=== PATIENT | male | born 1955 | race Caucasian/White ===

== ENCOUNTER → 2018-01-04 12:21 | Outpatient (CLI) | payer MEDICAID, SELFPAY ==
--- NOTE | 2018-01-04 09:00 | LES_PTH ---
PATIENT: ALCIDES BIRD LOC: [facility] U#:[id number] AGE/SX: 69/M ROOM: RE01/04/[address]: Dr. Figueroa Doshi DO : 1955 BED: DIS: SPEC #: [id number] RECD: 01/04/18 12:15 STATUS: SAMANTHATramaine MANUEL #: [id number] SONDRA: 01/04/18 09:[address]: Figueroa Doshi DEPT: SURGICAL PATHOLOGY RECD BY: Sohail Jacobo Tissues: Skin, NOS Procedures: Surgery Specimen Level IV HEADER OPERATION: Punch biopsy abnormal nevus PRE-OP DIAGNOSIS: Rule out melanoma TISSUE SUBMITTED: 5 mm punch atypical nevus MICROSCOPIC DIAGNOSIS Atypical nevus, punch biopsy: Consistent with pigmented seborrheic keratosis. Negative for melanocytic lesion. SJ:lizy 01/05/18 MICROSCOPIC DESCRIPTION Slides are reviewed. GROSS DESCRIPTION Received in fixative is one container labeled with the patient's name and designated punch biopsy. The specimen consists of a round piece of harp-brown skin measuring 0.5 cm in diameter and up to 0.3 cm in depth. The entire specimen is submitted in one cassette. / SJ:rg 01/04/18 TC:1 CPT: 24200
== END ==
PROVIDERS: Family Provider Family Medicine; PCP Family Medicine; Visit Provider Family Medicine
DX: Z85.820 Personal history of malignant melanoma of skin (principal)
CPT/HCPCS: 88305

== ENCOUNTER → 2018-06-30 08:17 | Outpatient (CLI) | payer MEDICAID, SELFPAY ==
[2018-06-30 12:50] LABS: Absolute Neutrophil Count 3.9 X10^3/uL (2.0-7.7); Basophil# 0.07 X10^3/uL; Eosinophil# 0.44 X10^3/uL; Eosinophils% 6.1 % (0-5); Hematocrit 44.3 % (40-54); Hemoglobin 14.5 g/dl (13.0-16.5); Lymphocyte % 31.6 % (19-41); Mean Corp Hgb Conc 32.7 g/gl (32-36); Mean Corpuscular Hgb 29.7 pg (27.0-32.0); Mean Corpuscular Volume 90.8 fL (80-94); Monocyte# 0.52 X10^3/uL; Monocyte% 7.2 % (0-10); Neutrophil # 3.93 X10^3/uL (2.7-7.7); Platelet Count 214 K/mm3 (150-450); RBC Distribution Width CV 14.8 % (11.6-14.6); RBC Distribution Width SD 48.7 fl (35.1-43.9); Red Blood Count 4.88 M/mm3 (4.6-6.2); White Blood Count 7.3 K/mm3 (4.4-11.0)
[2018-06-30 12:54] LABS: Microalbumin,Random Urine < 5.0 mg/L (NO RANGE EST.)
[2018-06-30 13:03] LABS: POSITIVE COUNT NO; POSITIVE DIFFERENTIAL NO; POSITIVE MORPHOLOGY NO
[2018-06-30 13:56] LABS: ALB/GLOB Ratio 1.1 RATIO (0.9-2.4); AST(SGOT) 11 U/L (15-37); Alanine Aminotransfer ALT/SGPT 20 U/L (16-61); Albumin, Serum 3.4 g/dL (3.2-5.0); Alkaline Phosphatase 81 U/L (45-117); Anion Gap 8 (5-15); BUN 7 mg/dL (7-18); BUN/Creat Ratio 8.7 RATIO (10-20); Calcium,Total 8.4 mg/dL (8.5-10.1); Chloride 109 mmol/L (98-107); Cholesterol 161 mg/dL (200); Creatinine, Serum 0.81 mg/dL (0.70-1.30); EST Glomerular Filtration Rate 103 mL/min (>60); Est Glom Filt Rate - Afr Amer 125 mL/min (>60); Glucose 157 mg/dL (74-106); High Density Lipoprotein 38 mg/dL; PSA,Total - Annual Screen 2.56 ng/mL (0.00-4.00); Protein, Total 6.4 g/dL (6.4-8.2); Sodium Level 143 mmol/L (136-145); Thyroid Stim Hormone (TSH) 1.15 uIU/mL (0.358-3.74); Triglycerides 66 mg/dL; Very Low Density Lipoprotein 13 mg/dL (5-40)
--- OUTSIDE RECORDS SUMMARY | 2018-08-15 19:56 | XMS RPT_ITS ---
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 / Repository E11.9(ICD-10) 06/30/2018 Unknown I10 - Essential Figueroa Doshi (primary) Community hypertension / Hospital I10(ICD-10) Repository 06/30/2018 Unknown Z12.5 - Encounter Figueroa Doshi for screening for Community malignant neoplasm Hospital of prostate / Repository Z12.5(ICD-10) 06/30/2018 Unknown R63.4 - Abnormal Figueroa Doshi weight loss / Community R63.4(ICD-10) Hospital Repository PROCEDURES PROCEDURES No Procedure Records FoundRESULTS RESULTS MICROALB:CREAT Collected: 06/30/2018 Status: F Source: [facility] RATIO,RANDOM UR 8:18 AM [facility] REPOSITORY TYPE CODE TESTS RESULT OUT OF RANGE REFERENCE UNITS LAB L501.1200 NO RANGE EST. mg/dL 99.80 Normal UR CREAT LAB L502.0500 NO RANGE EST. mg/L < 5.0 Normal MICROALBUMI N,UR LAB L502.0600 <30 mg/g CRE mg/g CRE Test Normal not performed MALB:CREAT Performed By: #### L502.0250 #### [facility] [address] [place], [address] CBC W/DIFF, AUTOMATED Collected: 06/30/2018 Status: F Source: [place] 8:18 AM [facility] REPOSITORY TYPE CODE TESTS RESULT OUT OF RANGE REFERENCE UNITS LAB L100.1000 4.4-11.0 K/mm3 Normal WBC 7.3 LAB L100.1200 4.6-6.2 M/mm3 Normal RBC 4.88 LAB L100.1300 13.0-16.5 g/dl Normal HGB 14.5 LAB L100.1400 40-54 % Normal HCT 44.3 LAB L100.1500 80-94 fL Normal MCV 90.8 LAB L100.1600 27.0-32.0 pg Normal MCH 29.7 LAB L100.1700 32-36 g/gl Normal MCHC 32.7 LAB L100.1810 11.6-14.6 % High RDW CV 14.8 LAB L100.1820 35.1-43.9 fl High RDW SD 48.7 LAB L100.1900 150-450 K/mm3 Normal PLT 214 LAB L100.2000 6.2-12.0 fl Normal MPV 12.0 LAB L100.2100 47-70 % Normal NEUT% 54.0 LAB L100.2200 19-41 % Normal LY% 31.6 LAB L100.2300 0-10 % Normal MONO% 7.2 LAB L100.2400 0-5 % High EO% 6.1 LAB L100.2500 0-1 % Normal BASO% 1.0 LAB L100.2550 0.0-0.9 % Normal IM GRAN % 0.100 Result Comment: IG% - Immature Granulocytes (promyelocytes, myelocytes and metamyelocytes) > 1% indicates that a LEFT SHIFT is Present. LAB L100.2620 2.0-7.7 X10 3/uL Normal Absolute Neut 3.9 LAB L100.2720 0.83-4.51 X10 3/ul Normal Absolute Lymph 2.30 Performed By: #### L100.0100 #### [facility] [address] [place], [address] COMPREHENSIVE METABOLIC Collected: 06/30/2018 Status: F Source: [facility] 8:18 AM [facility] REPOSITORY TYPE CODE TESTS RESULT OUT OF RANGE REFERENCE UNITS LAB L501.0100 74-106 mg/dL High GLU 157 Result Comment: Fasting Glucose result greater than or equal to 126 mg/dL suggests DIABETES MELLITUS per A.D.A. criteria. Please note revised GLUCOSE reference range effective 2017. LAB L501.1000 7-18 mg/dL Normal BUN 7 LAB L501.1100 0.70-1.30 mg/dL Normal CREAT,SERUM 0.81 Result Comment: The validity of the calculated GFR AND GFRAA in patients over 70 years has not been determined. Clinical correlation is essential. LAB L501.1110 >60 mL/min Normal EST GFR 103 Result Comment: Non- GFR Calc LAB L501.1115 >60 mL/min Normal EST GFR - AA 125 Result Comment: GFR Calc LAB L501.1300 10-20 RATIO Low BUN/CRE 8.7 LAB L501.1500 6.4-8.2 g/dL Normal T PROT 6.4 LAB L501.1800 3.2-5.0 g/dL Normal ALB 3.4 LAB L501.1950 2.2-4.2 g/dL Normal GLOB 3.0 LAB L501.2000 0.9-2.4 RATIO Normal A/G 1.1 LAB L501.2200 8.5-10.1 mg/dL Low CA 8.4 LAB L501.4100 15-37 U/L Low AST 11 LAB L501.4305 45-117 U/L Normal ALK P 81 LAB L501.4405 16-61 U/L Normal ALT 20 LAB L501.4600 0.20-1.00 mg/dL Normal T BILI 0.40 LAB L501.5300 136-145 mmol/L Normal NA 143 LAB L501.5600 3.5-5.1 mmol/L Normal K 4.0 LAB L501.5900 98-107 mmol/L High CL 109 LAB L501.6100 21.0-32.0 mmol/L Normal CO2 26.0 LAB L501.6200 5-15 Normal GAP 8 Performed By: #### L500.4050, L500.4100, L501.9520, L501.9910 #### [facility] [address] [place], [place], [id number] LIPID PROFILE Collected: 06/30/2018 Status: F Source: [place] 8:18 AM [facility] REPOSITORY TYPE CODE TESTS RESULT OUT OF RANGE REFERENCE UNITS LAB L501.4900 200 mg/dL Normal CHOL 161 Result Comment: <200 mg/dL Desirable 200-240 mg/dL Borderline >240 mg/dL High Risk LAB L501.5000 mg/dL Normal TRIG 66 Result Comment: The drugs N-Acetylcysteine and Metamizole may falsely depress this assay. Serum Triglycerides Reference Interval Normal <150 mg/dL Borderline high 150 - 199 mg/dL High 200 - 499 mg/dL Very High > or = 500 mg/dL LAB L501.6400 mg/dL Low HDL 38 Result Comment: The drugs N-Acetylcysteine and Metamizole may falsely depress this assay. Reference Range HDL <40 mg/dL Low HDL Cholesterol HDL >or= 60 mg/dL High HDL Cholesterol LAB L501.6500 0-130 mg/dL Normal LDL 110 LAB L501.6600 5-40 mg/dL Normal VLDL 13 Performed By: #### L500.4050, L500.4100, L501.9520, L501.9910 #### [facility] [address] [place], [place], [id number] THYROID STIM HORMONE Collected: 06/30/2018 Status: F Source: [place] (TSH) 8:18 AM [facility] REPOSITORY TYPE CODE TESTS RESULT OUT OF RANGE REFERENCE UNITS LAB L501.9520 0.358-3.74 uIU/mL Normal TSH 1.15 Performed By: #### L500.4050, L500.4100, L501.9520, L501.9910 #### [facility] [address] [place], [address] PSA,TOTAL - ANNUAL Collected: 06/30/2018 Status: F Source: [place] SCREEN 8:18 AM [facility] REPOSITORY TYPE CODE TESTS RESULT OUT OF RANGE REFERENCE UNITS LAB L501.9910 0.00-4.00 ng/mL Normal PSA,TOT 2.56 SCREEN Result Comment: This test was performed using the TPSA assay method for the [employer] chemistry system. Values obtained with different assay methods cannot be used interchangably. When changing PSA assays in the course of monitoring a patient, additional sequential testing should be carried out to confirm baseline values. Performed By: #### L500.4050, L500.4100, L501.9520, L501.9910 #### [facility] [address] [place], [address] HEMOGLOBIN A1C Collected: 06/30/2018 Status: F Source: [place] 8:18 AM [facility] REPOSITORY TYPE CODE TESTS RESULT OUT OF RANGE REFERENCE UNITS LAB L501.9985 4.2-6.3 % High HGB A1C 7.0 Performed By: #### L501.9985 #### [facility] [address] [place], [address] LESION (CHOOSE SITE) Observed: 01/04/2018 Status: F Source: [place] 9:00 AM [facility] REPOSITORY Patient: ALCIDES BIRD : 1955 (62/M) Acct Num: [id number] Phys: Figueroa Doshi DO Unit Num: [id number] Loc: LABSPEC Specimen: [id number] Received: 01/04/18 - 1215 Spec Type: Lesion TISSUES TISSUES: Skin, NOS GROSS DESCRIPTION Received in fixative is one container labeled with the patient's name and designated punch biopsy. The specimen consists of a round piece of harp-brown skin measuring 0.5 cm in diameter and up to 0.3 cm in depth. The entire specimen is submitted in one cassette. / SJ:lizy 01/04/18 TC:1 CPT: 59170 HEADER OPERATION: Punch biopsy abnormal nevus PRE-OP DIAGNOSIS: Rule out melanoma TISSUE SUBMITTED: 5 mm punch atypical nevus MICROSCOPIC DESCRIPTION Slides are reviewed. MICROSCOPIC DIAGNOSIS Atypical nevus, punch biopsy: Consistent with pigmented seborrheic keratosis. Negative for melanocytic lesion. SJ:lizy 01/05/18 Signed Angel Schusterin 01/05/18 <signature on file> Performed By: #### PLES #### [facility] [address] [place], [address] ALLERGIES ALLERGIES DATE TYPE / CODE NAME / CODE REACTION SEVERITY SOURCE 07/12/2015 Drug Penicillins/ Unknown Unknown [facility] Allergy/4160 [id number](R Hospital 34578(SNOMED XNORM) Repository CT) ENCOUNTERS ENCOUNTERS ADMIT/DISCHARGE ACCOUNT ADMITTING ENCOUNTER LOCATION SOURCE NUMBER CLASS 06/30/2018 [id number] Ambulatory [facility] ing:LAB.FUTUR Repository E 06/30/2018 [id number] [facility] ing:LAB.FUTUR Repository E 06/26/2018 [id number] [facility] ing:LAB.FUTUR Repository E 01/04/2018 [id number] [facility] ing:LABSPEC Repository PAYERS PAYERS ENCOUNTER GUARANTOR PAYER SUBSCRIBER SOURCE 06/30/2018 ALCIDES Sotelo Primary ALCIDES [id number] Insurance:CARESOVARINDER BRAYB: [facility] OSMARDAMEONEZRA REMYDeepak danydarshanaquirino Number: [id number] [id number]: [id number] Repository Date:2018-06-29 O () [address]ATTN: [place] [address]LQ: 06/30/2018 Secondary NOT GIVENUNK [place] Insurance:SELF PAY [facility] Number: Effective Repository Date:2018-06-29 06/30/2018 ALCIDES E Primary ALCIDES Lawrence [id number] S Insurance:CARESOURCEP HORNERDOB: [facility] mary carmen LUEVANO Number: [id number] Health Center [address]Uxb: [id number] Repository Date:2018-06-30P O (HP) [address]ATTN: [place] [address]GP: 06/30/2018 Secondary NOT GIVENUNK [place] Insurance:SELF PAY [facility] Number: Effective Repository Date:2018-06-30 06/26/2018 Alcides E Primary Alcides Lawrence [id number] S Insurance:CARESOURCEP HornerDOB: [facility] mary carmen [place] Number: [id number] Health Center [address]Zdx: [id number] Repository Date:2018-01-05P O (HP) [address]ATTN: [place] [address]CS: 06/26/2018 Secondary NOT GIVENUNK [place] Insurance:SELF PAY [facility] Number: Effective Repository Date:2018-01-05 01/04/2018 ALCIDES E Primary ALCIDES Lawrence [id number] [address] Insurance:CARESOURCEP HORNERDOB: Counts include [facility] beds at the [facility] mary carmen SHINE Number: [id number] Health Center [id number]: [id number] Repository Date:2018-01-04P O (HP) [address]ATTN: [place] [address]UN: 01/04/2018 Secondary NOT GIVENUNK [place] Insurance:SELF PAY [facility] Number: Effective Repository Date:2018-01-04
== END ==
PROVIDERS: Family Provider Family Medicine; PCP Family Medicine; Visit Provider Family Medicine
DX: E11.9 Type 2 diabetes mellitus without complications (principal); I10 Essential (primary) hypertension; R63.4 Abnormal weight loss; Z12.5 Encounter for screening for malignant neoplasm of prostate
CPT/HCPCS: 36415; 80053; 80061; 82043; 82570; 83036; 84153; 84443; 85025; G0103

== ENCOUNTER 2018-08-17 19:15 | Emergency (ER) | payer MEDICAID, SELFPAY ==
[2018-08-17 19:17] VITALS: BP 156/90; PULSE 72; RESP 16; TEMP 36.7; O2SAT 98; BMI 24.4
--- NOTE | 2018-08-17 19:34 | ED.DEP ---
ED Disposition - Plan for ED Patient: Instructions: ED Bite Cat Prescriptions: Amox/Clavulanate Tablet [Augmentin Tablet] 875 mg PO Q12H #20 tablet Referrals: Figueroa Doshi DO [Primary Care Provider] -
--- NOTE | 2018-08-17 19:41 | ED.VISSUMM ---
- ER Visit Summary Date of Service: 08/17/18 Chief Complaint: Cat bite History of Present Illness: The patient is a 63 M presenting after a cat bite. Patient states he accidentally closed his cat in a closet. When he opened the door he believes he may have stepped on the cats tail. The cat bit him on both hands. It did not break the skin of the left hand, he has a laceration to the right small finger. The cat's immunizations are up-to-date. He does not recall his last tetanus immunization. 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 Physical Examination: Vitals are stable. Patient is afebrile. Alert no acute distress. HEENT exam is unremarkable. Neck is supple. Lungs are clear and equal bilaterally. Heart is regular rate and rhythm. Extremities left palm abrasion; right small finger 1.5 cm medial laceration. Tendon function intact. No erythema or warmth. Normal cap refill. Skin is warm and dry. No focal neurologic deficit. Remainder of exam is unremarkable. Emergency Department Course and Treatment: Wound was copiously irrigated. He was given tetanus IM. He has listed allergy to penicillin but states that he has taken penicillin without problems in the past. He is given Augmentin and a prescription for Augmentin. He is advised to watch closely for worsening signs of infection. Advised to follow-up with his primary care physician for wound recheck. Advised return to ED if worsening complaints. Disposition: Discharge home Impression: Cat bite right small finger This note was generated with [employer] (formerly known as [employer]) dictation software. It may contain incorrect words, spelling, and punctuation that were not noted in review of the chart prior to signing ED Disposition - Plan for ED Patient: Instructions: ED Bite Cat Prescriptions: Amox/Clavulanate Tablet [Augmentin Tablet] 875 mg PO Q12H #20 tablet Referrals: Figueroa Doshi DO [Primary Care Provider] -
--- NOTE | 2018-08-17 19:46 | ED.DCSUM_ITS ---
- ER Visit Summary Date of Service: 08/17/18 Chief Complaint: Cat bite History of Present Illness: The patient is a 63 M presenting after a cat bite. Patient states he accidentally closed his cat in a closet. When he opened the door he believes he may have stepped on the cats tail. The cat bit him on both hands. It did not break the skin of the left hand, he has a laceration to the right small finger. The cat's immunizations are up-to-date. He does not recall his last tetanus immunization. 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 Physical Examination: Vitals are stable. Patient is afebrile. Alert no acute distress. HEENT exam is unremarkable. Neck is supple. Lungs are clear and equal bilaterally. Heart is regular rate and rhythm. Extremities left palm abrasion; right small finger 1.5 cm medial laceration. Tendon function intact. No erythema or warmth. Normal cap refill. Skin is warm and dry. No focal neurologic deficit. Remainder of exam is unremarkable. Emergency Department Course and Treatment: Wound was copiously irrigated. He was given tetanus IM. He has listed allergy to penicillin but states that he has taken penicillin without problems in the past. He is given Augmentin and a prescription for Augmentin. He is advised to watch closely for worsening signs of infection. Advised to follow-up with his primary care physician for wound recheck. Advised return to ED if worsening complaints. Disposition: Discharge home Impression: Cat bite right small finger This note was generated with [employer] dictation software. It may contain incorrect words, spelling, and punctuation that were not noted in review of the chart prior to signing ED Disposition - Plan for ED Patient: Instructions: ED Bite Cat Prescriptions: Amox/Clavulanate Tablet [Augmentin Tablet] 875 mg PO Q12H #20 tablet Referrals: Figueroa Doshi DO [Primary Care Provider] -
[2018-08-17] MEDS: Diphth,Pertuss(Acell),Tet Vac 0.5 ML Vial IM (19:50)
[2018-08-17] MEDS: Amox/Clavulanate 875 MG Tablet PO (19:50)
[2018-08-17 20:13] VITALS: RESP 18
== END 2018-08-17 20:14 | disposition home or self-care (01) ==
LOC: ED 19:49
PROVIDERS: Emergency Provider Emergency Medicine; Family Provider Family Medicine; PCP Family Medicine
DX: S61.452A Open bite of left hand, initial encounter (principal); S61.451A Open bite of right hand, initial encounter; Z23 Encounter for immunization; E11.9 Type 2 diabetes mellitus without complications; I10 Essential (primary) hypertension; E78.00 Pure hypercholesterolemia, unspecified; Z79.82 Long term (current) use of aspirin; Z79.899 Other long term (current) drug therapy; W55.01XA Bitten by cat, initial encounter; Y93.89 Activity, other specified; Y92.008 Other place in unspecified non-institutional (private) residence as the place of occurrence of the external cause; Y99.8 Other external cause status
CPT/HCPCS: 90715; 99282

== ENCOUNTER → 2018-10-24 | Outpatient (CLI) | payer MEDICAID, SELFPAY ==
[2018-10-23 08:44] VITALS: BMI 24.8
--- NOTE | 2018-10-24 13:43 | US_ITS ---
STUDY: SCROTUM ULTRASOUND REASON FOR EXAM: Male, 63 years old. Left testicular swelling x several years, known small hernia superior to the testicle. TECHNIQUE: Ultrasound evaluation of the scrotum was performed with color Doppler and static acevedo-scale imaging. COMPARISON: None. FINDINGS: RIGHT TESTICLE INTRATESTICULAR: There is a normal size of the right testicle. The right testicle measures 5.3 x 3.7 x 2.4 cm. There is a homogenous echotexture. There is normal arterial and normal venous vascularity. There is no demonstrated right testicular mass or cyst. EXTRATESTICULAR: The epididymis is normal in size. The epididymis head measures 1.6 x 0.8 x 1.5 cm. There is normal vascularity of the epididymis. There is no demonstrated epididymal cystic structure. There is a small hydrocele. There is no demonstrated varicocele. There is no demonstrated extratesticular mass or cyst. LEFT TESTICLE INTRATESTICULAR: There is a normal size of the left testicle. The left testicle measures 5.1 x 4.7 x 2.8 cm. There is a homogenous echotexture. There is normal arterial and normal venous vascularity. There is no demonstrated left testicular mass or cyst. EXTRATESTICULAR: The epididymis is normal in size. The epididymis head measures 2.4 x 2.9 x 1.9 cm. There is normal vascularity of the epididymis. There are 2 well-defined cystic structures within the epididymis, consistent with epididymal cysts. The larger is 1.4 x 1.9 x 1.6 cm, while the second is 0.9 x 0.9 x 0.5 cm. There is a septated, multilobulated 6.6 x 6.3 x 4.3 cm cystic structure extending from the epididymis, with low level echoes, consistent with a spermatocele. There is no demonstrated hydrocele. There is no demonstrated varicocele. Additional scanning superior to the testicle suggestive slight motion within the inguinal canal, although is unclear if this was artifact. A small fat-containing hernia not excluded, but there was no apparent herniation of actual bowel. US/Testicular with Arterial Flow IMPRESSION: 1. Small right hydrocele, otherwise normal right testicle and epididymis. 2. Unremarkable left testicle. 3. There are 2 cysts in the left epididymal head, as described above, as well as a 6.6 cm septated, multilobulated, cystic structure suggesting a spermatocele that arises from the left epididymis. 4. Small herniation of fat in the left inguinal canal difficult to exclude, but there is no apparent herniation of bowel into the upper left scrotum. Electronically Signed: Brad Morgan MD at 16:24 EDT , Service support ,
== END | disposition home or self-care (01) ==
LOC: US 13:42
PROVIDERS: Family Provider Family Medicine; PCP Family Medicine; Referring Provider Surgery; Visit Provider Surgery
DX: N50.9 Disorder of male genital organs, unspecified (principal)
CPT/HCPCS: 76870; 93976

== ENCOUNTER 2018-11-09 05:58 | Day surgery (SDC) | payer MEDICAID, SELFPAY ==
[2018-10-23 09:01] VITALS: BMI 24.4
--- NOTE | 2018-11-06 08:05 | EKG12_ITS ---
Test Reason : PRE OP Blood Pressure : / mmHG Vent. Rate : 061 BPM Atrial Rate : 061 BPM P-R Int : 124 ms QRS Dur : 102 ms QT Int : 430 ms P-R-T Axes : 008 001 002 degrees QTc Int : 432 ms Normal sinus rhythm Normal ECG Confirmed by NINA LAYNE, RADHA ([id number]), editorial cartoonist AARON JOHNS ([id number]) on 11/08/2018 1:37:54 PM Referred By: Arbam Jenkins Confirmed By:RADHA WOOD MD
[2018-11-06 08:45] LABS: Anion Gap 7 (5-15); BUN 11 mg/dL (7-18); BUN/Creat Ratio 13.5 RATIO (10-20); Calcium,Total 8.7 mg/dL (8.5-10.1); Chloride 108 mmol/L (98-107); Creatinine, Serum 0.81 mg/dL (0.70-1.30); EST Glomerular Filtration Rate 102 mL/min (>60); Est Glom Filt Rate - Afr Amer 123 mL/min (>60); Glucose 128 mg/dL (74-106); Potassium 4.1 mmol/L (3.5-5.1); Sodium Level 141 mmol/L (136-145)
[2018-11-06 10:01] LABS: Hemoglobin A1c 6.7 % (4.2-6.3)
--- NOTE | 2018-11-09 | LIP_PTH ---
PATIENT: ALCIDES BIRD LOC: [facility] U#:[id number] AGE/SX: 63/M ROOM: RE11/09/[address]: Dr. Abram Jenkins MD : 1955 BED: DIS: 11/09/2018 SPEC #: [id number] RECD: 11/09/18 12:48 STATUS: COLTON MANUEL #: [id number] SONDRA: 11/09/18 00:[address]: Abram Jenkins DEPT: SURGICAL PATHOLOGY RECD BY: Zain Park ENTERED: 11/09/18 12:48 SP TYPE: LIPOMA OTHR DR: Dr. Figueroa Doshi, DO Tissues: Soft tissues, NOS Procedures: Surgery Specimen Level IV HEADER OPERATION: Lap robotic inguinal hernia converted to open left inguinal PRE-OP DIAGNOSIS: Left inguinal hernia TISSUE SUBMITTED: Cord lipoma MICROSCOPIC DIAGNOSIS Left inguinal soft tissue, excision: One benign lymph node tissue. Mature adipose tissue consistent with cord lipoma. AM:lizy 11/10/18 MICROSCOPIC DESCRIPTION Slides are reviewed. GROSS DESCRIPTION Received in fixative is one container labeled with the patient's name and designated cord lipoma. The specimen consists of three variable sized fragments of yellow adipose tissue that in aggregate measure 8 x 6 x 2 cm. Sections reveal a focal indurated area of possible lymph node. Sections of the rest of the specimen reveal yellow adipose cut surfaces without area of hemorrhage, necrosis or cystic degeneration. Rubber Goods Tester sections are submitted in two cassettes. Cassette 1 contains the possible lymph node. / SJ:lizy 11/09/18 TC:5 CPT: 55884
[2018-11-09 06:39] VITALS: BP 136/82; PULSE 50; RESP 16; TEMP 36.6; O2SAT 99; BMI 24.7
[2018-11-09 07:11] LABS: Bedside Glucose 127 mg/dL (70-110)
[2018-11-09] MEDS: Bupivacaine Mpf 0.5% 30 ML VIAL (08:30)
[2018-11-09 08:51] VITALS: BP 115/77; BP 136/82; PULSE 58; RESP 16; TEMP 36.8; O2SAT 93
[2018-11-09 09:00] VITALS: BP 128/74; BP 136/82; PULSE 52; RESP 16; O2SAT 96
[2018-11-09 09:00] LABS: Bedside Glucose 131 mg/dL (70-110)
--- NOTE | 2018-11-09 09:06 | PCM.OPRPT ---
Problem List (1) Left inguinal hernia Status: Acute Report of Operation Date of Procedure: 11/09/18 Pre-Operative Diagnosis: Left inguinal hernia Post-Operative Diagnosis: Left inguinal hernia Surgery/Procedure Performed:: Laparoscopic converted to open left inguinal hernia repair with mesh Specimen's removed: Lipoma of the cord Description of Procedure: The patient was brought back to the operating room and general anesthesia was induced. The abdomen was prepped and draped in the usual sterile fashion. An incision was made in the upper midline and deepened to the fascia the fascia was elevated and incised. A port was placed into the abdomen was insufflated to 15 mmHg. Upon inspecting the abdomen the patient had dense adhesions to his former umbilical hernia repair as well as his right periumbilical incision. At this time I converted to an open left inguinal hernia. The port was removed and the air was allowed to escape the abdomen and the fascia at the superior midline incision was closed with an 0 Vicryl [id number] suture. Next an area in the left groin was marked and an incision was made. Incision was deepened to the external aponeurosis. The external ring was identified and a small doni was made in the external aponeurosis and this was elongated down to the external ring using Metzenbaum scissors. Next both sides of the external aponeurosis were elevated and the cord was dissected free and encircled with a Dayanara drain and elevated. The patient had a large direct hernia. This was imbricated with interrupted 3-0 Vicryl sutures. The cord was then inspected. The patient had a large lipoma of the cord but no indirect sac was identified. Next a keyhole mesh was placed into the groin and sutured to the pubic tubercle using a 2-0 PDS suture. 2-0 PDS interrupted sutures were then used to anchor the mesh to the shelving portion of the inguinal ligament and medially to the conjoined tendon. The flaps were placed around the proximal spermatic cord and this was tied together leaving enough room to place the pinky finger of the train brake operator adjacent to the spermatic cord. The flaps were placed under the external aponeurosis. The inguinal cord was then inspected and irrigated and the inguinal canal was suctioned dry. Next the external aponeurosis was closed with a running 3-0 Vicryl suture and then the Radhames's fascia was closed with interrupted 3-0 Vicryl sutures. Both incisions were anesthetized and closed with 4-0 Monocryl suture and Dermabond glue. Both testicles were checked at the end the case and were present in the scrotum. Patient tolerated the procedure well. Grafts/Implants Used: Keyhole polypropylene mesh
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
[2018-11-09 09:15] VITALS: BP 109/68; BP 136/82; PULSE 51; RESP 16; TEMP 36.8; O2SAT 96
[2018-11-09 09:57] VITALS: BP 136/82; BP 137/95; PULSE 55; RESP 18; TEMP 36.9; O2SAT 96
== END 2018-11-09 10:28 | disposition home or self-care (01) ==
LOC: SDC 06:00 → AC 06:00
PROVIDERS: Family Provider Family Medicine; PCP Family Medicine; Referring Provider Surgery; Visit Provider Surgery
PROC: 0YQ64ZZ Repair Left Inguinal Region, Percutaneous Endoscopic Approach (ICD-10-PCS; CPT 49505; principal; 2018-11-09 07:10)
DX: K40.90 Unilateral inguinal hernia, without obstruction or gangrene, not specified as recurrent (principal); D17.6 Benign lipomatous neoplasm of spermatic cord; J45.909 Unspecified asthma, uncomplicated; K21.9 Gastro-esophageal reflux disease without esophagitis; H40.9 Unspecified glaucoma; E11.9 Type 2 diabetes mellitus without complications; I10 Essential (primary) hypertension; F41.9 Anxiety disorder, unspecified; E78.00 Pure hypercholesterolemia, unspecified; Z85.820 Personal history of malignant melanoma of skin; Z79.51 Long term (current) use of inhaled steroids; Z79.82 Long term (current) use of aspirin; Z79.899 Other long term (current) drug therapy
CPT/HCPCS: 00830; 49505; 55520; 36415; 80048; 82962; 83036; 88304; 88305; 93005; J7120; C1781; J2405

== ENCOUNTER → 2019-07-09 08:49 | Outpatient (CLI) | payer MEDICAID, SELFPAY ==
[2019-07-09 13:07] LABS: Absolute Lymphocyte Count 2.39 X10^3/uL (0.83-4.51); Absolute Neutrophil Count 4.9 X10^3/uL (2.0-7.7); Basophil# 0.08 X10^3/uL; Basophil% 0.9 % (0-1); Eosinophil# 0.39 X10^3/uL; Eosinophils% 4.6 % (0-5); Hematocrit 46.8 % (40-54); Hemoglobin 15.5 g/dL (13.0-16.5); Lymphocyte # 2.39 X10^3/ul (4.0); Lymphocyte % 28.3 % (19-41); Mean Corp Hgb Conc 33.1 g/dL (32-36); Mean Corpuscular Hgb 30.5 pg (27.0-32.0); Mean Corpuscular Volume 92.1 fL (80-94); Mean Platelet Vol. 11.5 fl (6.2-12.0); Monocyte# 0.61 X10^3/uL; Monocyte% 7.2 % (0-10); NRBC Flagged by Analyzer 0 % (0-5); Neutrophil # 4.93 X10^3/uL (2.7-7.7); Neutrophil % 58.5 % (47-70); Platelet Count 213 K/mm3 (150-450); RBC Distribution Width CV 13.8 % (11.6-14.6); Red Blood Count 5.08 M/mm3 (4.6-6.2); White Blood Count 8.4 K/mm3 (4.4-11.0)
[2019-07-09 13:18] LABS: Hemoglobin A1c 6.8 % (4.2-6.3)
[2019-07-09 13:20] LABS: ALB/GLOB Ratio 1.1 RATIO (0.9-2.4); AST(SGOT) 11 U/L (15-37); Alanine Aminotransfer ALT/SGPT 22 U/L (16-61); Albumin, Serum 3.6 g/dL (3.2-5.0); Alkaline Phosphatase 88 U/L (45-117); Anion Gap 6 (5-15); BUN 14 mg/dL (7-18); BUN/Creat Ratio 17.3 RATIO (10-20); Calcium,Total 8.9 mg/dL (8.5-10.1); Chloride 111 mmol/L (98-107); Cholesterol 167 mg/dL (200); Creatinine, Serum 0.81 mg/dL (0.70-1.30); EST Glomerular Filtration Rate 102 mL/min (>60); Est Glom Filt Rate - Afr Amer 124 mL/min (>60); Globulin 3.3 g/dL (2.2-4.2); Glucose 140 mg/dL (74-106); High Density Lipoprotein 49 mg/dL; Potassium 4.3 mmol/L (3.5-5.1); Protein, Total 6.9 g/dL (6.4-8.2); Sodium Level 142 mmol/L (136-145); Triglycerides 80 mg/dL; Very Low Density Lipoprotein 16 mg/dL (5-40)
[2019-07-09 13:49] LABS: Microalbumin,Random Urine 8.3 mg/L (NO RANGE EST.); Microalbumin:Creatinine Ratio 7.1 mg/g CRE (<30 mg/g CRE)
== END ==
PROVIDERS: Family Provider Family Medicine; PCP Family Medicine; Visit Provider Family Medicine
DX: Z00.00 Encounter for general adult medical examination without abnormal findings (principal); E11.9 Type 2 diabetes mellitus without complications; I10 Essential (primary) hypertension; E78.00 Pure hypercholesterolemia, unspecified
CPT/HCPCS: 36415; 80053; 80061; 82043; 82570; 83036; 85025

== ENCOUNTER → 2019-07-30 10:38 | Outpatient (CLI) | payer MEDICAID, SELFPAY ==
--- NOTE | 2019-07-30 10:40 | STE_ITS ---
Reason For Study: CHEST PAIN Stress Results Protocol: Matteo Protocol Maximum Predicted HR: 156 bpm Target HR: 133 bpm % Maximum Predicted HR: 87 % DurationHeart Rate Stage (mm:ss) (bpm) BP BASELINE 51 148/84 STAGE 1 3:00 81 148/82 STAGE 2 3:00 96 150/88 STAGE 3 3:00 125 182/80 STAGE 4 1:00 136 / RECOVERY 66 120/84 Stress Duration: 10:00 mm:ss Maximum Stress HR: 136 bpm Baseline Echocardiogram Findings Stress Echo Wall motion Data Resting WM Intermediate WM Stress WM Interpretation Summary Exercise stress echo. 64-year-old man with a history of hypertension, diabetes mellitus, hypercholesterolemia. Stress echo. Resting echocardiogram demonstrates sinus bradycardia with a rate of 51 bpm normal intervals are noted resting blood pressure is 148/84 mmHg. The patient exercised according to regular Matteo protocol for a total duration of 10 minutes. The maximum heart rate attained was 141 bpm which was 90% of maximum predicted heart rate the maximum workload was 13.4 metabolic equivalents. The patient maintained sinus rhythm throughout the recording. At rest there were no ST or T wave changes noted suggest ischemia at peak exercise there was less than [address] depression noted in the leads not suggestive of ischemia. The test was terminated due to dyspnea and the target heart rate being achieved. The resting blood pressure was 148/84 with a peak blood pressure 182/80 mmHg and a rate pressure product of 22,900. Stress echocardiographic images. The resting echocardiogram demonstrated preserved ventricular systolic function. The estimated ejection fraction was noted to be 60%. At peak exercise there was thickening of all walker except for the inferior septal wall which did not appear to thicken and contract appropriately. The peak ejection fraction was approximately 65%. The above is suggestive of possible inferoseptal ischemia. Conclusion: Abnormal stress echocardiogram images with evidence of inferior septal ischemia. Good functional capacity. Ordering Physician: Figueroa Doshi Referring Physician: Figueroa Doshi Performed By: Varsha Davis RDCS
== END ==
PROVIDERS: Family Provider Family Medicine; PCP Family Medicine; Referring Provider Family Medicine; Visit Provider Family Medicine
DX: R07.9 Chest pain, unspecified (principal)
CPT/HCPCS: 93017; 93350

== ENCOUNTER → 2019-10-22 08:12 | Outpatient (CLI) | payer MEDICAID, SELFPAY ==
[2019-08-06 13:15] VITALS: BMI 24.4
[2019-10-22 10:17] LABS: ALB/GLOB Ratio 1.1 RATIO (0.9-2.4); AST(SGOT) 16 U/L (15-37); Alanine Aminotransfer ALT/SGPT 31 U/L (16-61); Albumin, Serum 3.7 g/dL (3.2-5.0); Alkaline Phosphatase 98 U/L (45-117); Anion Gap 6 (5-15); BUN 10 mg/dL (7-18); BUN/Creat Ratio 12.7 RATIO (10-20); Calcium,Total 8.8 mg/dL (8.5-10.1); Chloride 107 mmol/L (98-107); Cholesterol 165 mg/dL (200); Creatinine, Serum 0.79 mg/dL (0.70-1.30); EST Glomerular Filtration Rate 105 mL/min (>60); Est Glom Filt Rate - Afr Amer 127 mL/min (>60); Globulin 3.4 g/dL (2.2-4.2); Glucose 158 mg/dL (74-106); High Density Lipoprotein 42 mg/dL; Protein, Total 7.1 g/dL (6.4-8.2); Sodium Level 142 mmol/L (136-145); Triglycerides 65 mg/dL; Very Low Density Lipoprotein 13 mg/dL (5-40)
== END ==
PROVIDERS: PCP Family Medicine; Referring Provider Specialist; Visit Provider Specialist
DX: E78.00 Pure hypercholesterolemia, unspecified (principal); R07.9 Chest pain, unspecified; R94.39 Abnormal result of other cardiovascular function study
CPT/HCPCS: 36415; 80053; 80061

== ENCOUNTER 2020-04-11 05:27 | Emergency (ER) | payer MEDICAID, SELFPAY ==
[2020-04-07 11:15] VITALS: BMI 24.7
[2020-04-11 05:28] VITALS: BP 150/85; PULSE 68; RESP 18; TEMP 36.4; O2SAT 95; BMI 24.7
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
[2020-04-11] MEDS: Lidocaine/Epi/Tetracaine 50 ML 1 APPLIC TOPICAL (05:41)
[2020-04-11 07:07] VITALS: BP 123/100; PULSE 68; RESP 18; O2SAT 98
== END 2020-04-11 07:10 | disposition home or self-care (01) ==
PROVIDERS: Emergency Provider Emergency Medicine; PCP Family Medicine
DX: S09.90XA Unspecified injury of head, initial encounter (principal); S01.01XA Laceration without foreign body of scalp, initial encounter; S80.01XA Contusion of right knee, initial encounter; E78.00 Pure hypercholesterolemia, unspecified; I10 Essential (primary) hypertension; Y04.2XXA Assault by strike against or bumped into by another person, initial encounter; Z79.82 Long term (current) use of aspirin
CPT/HCPCS: 12001; 70450; 70486; 99283

== ENCOUNTER → 2020-04-29 14:20 | Outpatient (CLI) | payer MEDICAID, SELFPAY ==
[2020-04-11 05:28] VITALS: BMI 24.7
== END ==
PROVIDERS: PCP Family Medicine; Visit Provider Family Medicine
DX: M71.121 Other infective bursitis, right elbow (principal)
CPT/HCPCS: 87070; 87075; 87077; 87186; 87205

== ENCOUNTER 2020-09-18 09:24 | Outpatient (RCR) | payer MEDICARE, SELFPAY ==
[2020-09-18] MEDS: COVID-19 VACC, MRNA(PFIZER)/PF 30 MCG/0.3 ML SYRINGE IM (07:43)
[2020-10-09] MEDS: COVID-19 VACC, MRNA(PFIZER)/PF 30 MCG/0.3 ML SYRINGE IM (07:23)
== END 2020-09-18 23:59 ==
LOC: IMMUN 09:24
PROVIDERS: PCP Family Medicine; Visit Provider Family Medicine
DX: Z23 Encounter for immunization (principal)
CPT/HCPCS: 0001A; 0002A

== ENCOUNTER 2021-03-23 04:44 | Emergency (ER) | payer MEDICARE, SELFPAY ==
[2021-03-23 04:47] VITALS: BP 154/89; PULSE 78; RESP 17; TEMP 37.2; O2SAT 97; BMI 26.2
--- NOTE | 2021-03-23 05:29 | EKG12_ITS ---
Test Reason : CP Blood Pressure : / mmHG Vent. Rate : 078 BPM Atrial Rate : 078 BPM P-R Int : 166 ms QRS Dur : 088 ms QT Int : 370 ms P-R-T Axes : 010 066 -09 degrees QTc Int : 421 ms Normal sinus rhythm ST & T wave abnormality, consider inferior ischemia Abnormal ECG Confirmed by NINA LAYNE, RADHA ([id number]), video tape editor AARON JOHNS ([id number]) on 03/24/2021 8:44:15 AM Referred By: APRIL Confirmed By:RADHA WOOD MD
[2021-03-23] MEDS: Ipratropium/Albuterol Sulfate 3 ML AMPUL.NEB INHALATION (05:44)
[2021-03-23 05:46] VITALS: PULSE 80; RESP 18
[2021-03-23 05:52] LABS: Absolute Lymphocyte Count 1.35 X10^3/uL (0.83-4.51); Absolute Neutrophil Count 8.6 X10^3/uL (2.0-7.7); Basophil# 0.04 X10^3/uL; Basophil% 0.4 % (0-1); Eosinophil# 0.13 X10^3/uL; Eosinophils% 1.2 % (0-5); Hematocrit 46.2 % (40-54); Hemoglobin 15.2 g/dL (13.0-16.5); Lymphocyte # 1.35 X10^3/ul (0.83-4.51); Mean Corp Hgb Conc 32.9 g/dL (32-36); Mean Corpuscular Hgb 29.4 pg (27.0-32.0); Mean Corpuscular Volume 89.4 fL (80-94); Mean Platelet Vol. 10.8 fl (6.2-12.0); Monocyte# 1.09 X10^3/uL; Monocyte% 9.7 % (0-10); NRBC Flagged by Analyzer 0 % (0-5); Neutrophil % 76.4 % (47-70); Platelet Count 165 K/mm3 (150-450); RBC Distribution Width CV 14.7 % (11.6-14.6); RBC Distribution Width SD 47.9 fl (35.1-43.9); Red Blood Count 5.17 M/mm3 (4.6-6.2); White Blood Count 11.2 K/mm3 (4.4-11.0)
[2021-03-23] MEDS: Benzonatate 100 MG Capsule 200 MG PO (05:59)
[2021-03-23] MEDS: MethylPREDNISolone 125 MG/2 ML Vial IV (05:59)
[2021-03-23 06:01] VITALS: PULSE 85; RESP 23; O2SAT 93
[2021-03-23 06:17] LABS: Anion Gap 9 (5-15); BUN 14 mg/dL (7-18); BUN/Creat Ratio 17.8 RATIO (10-20); Calcium,Total 8.9 mg/dL (8.5-10.1); Chloride 106 mmol/L (98-107); Creatinine, Serum 0.79 mg/dL (0.70-1.30); EST Glomerular Filtration Rate 105 mL/min (>60); Est Glom Filt Rate - Afr Amer 127 mL/min (>60); Estimated Creatinine Clearance 96.26 ml/min; Glucose 179 mg/dL (74-106); Potassium 4.2 mmol/L (3.5-5.1); Sodium Level 139 mmol/L (136-145); Troponin-I HS 8 pg/mL (3.0-78.0)
--- NOTE | 2021-03-23 06:43 | RAD_ITS ---
STUDY: X-RAY CHEST REASON FOR EXAM: Male, 65 years old. cough, +covid TECHNIQUE: Single AP portable view of the chest. COMPARISON: 03/01/2016 FINDINGS: There are superimposed monitor leads. Minimal thickening of the minor fissure. Minimal compression left basilar parenchyma. There is no demonstrated pleural abnormality. Normal size heart. Normal mediastinum and angie. Normal visualized pulmonary arteries. Normal visualized aortic arch and descending thoracic aorta. Normal visualized thoracic spine. Normal visualized ribs, clavicles, and shoulders. There is no demonstrated abnormality of the visualized soft tissue structures of the upper abdomen. RAD/Chest 1 View (Portable) IMPRESSION: Nonspecific findings as above. No pulmonary edema, congestive heart failure or confluent pneumonia. Electronically Signed: Samaria Lazo MD at 7:48 EDT , Service support ,
--- NOTE | 2021-03-23 06:56 | EX.ED.DYSGE1 ---
HPI History of Present Illness Chief Complaint: Chest Pain Informant: patient Onset/Context/Timing Onset: Yesterday Current Severity: Mild Maximum Severity: Mild Narrative Narrative: Patient presents with multiple complaints. He developed sore throat and cough 3 days ago. He states it felt like he might be getting thrush. He developed chest pain yesterday that is intermittent. He denies significant pain at this time. Patient states he was told the past that he has COPD and he does have an inhaler that he uses as needed. He uses inhaler 5 times in the last day without significant improvement in his breathing. [facility] Medical History Abnormal stress echo Allergic rhinitis Anxiety Asthma Chest pain Degenerative disc disease Essential hypertension GERD (gastroesophageal reflux disease) Glaucoma Hypercholesterolemia Left inguinal hernia Type 2 diabetes mellitus Home Medications aspirin 81 mg PO DAILY@0800 07/12/15 [History Last Taken Unknown] diazepam 10 mg tablet 10 mg PO QHS PRN 10/23/18 [History Last Taken Unknown] latanoprost 0.005 % eye drops 1 drp OPHTHALMIC DAILY 10/23/18 [History Last Taken 11/09/18 05:00 1 DRP] losartan 25 mg tablet 25 mg PO DAILY 10/23/18 [History Last Taken Unknown] timolol 0.5 % eye drops 1 drp OPHTHALMIC BID 10/23/18 [History Last Taken 11/09/18 05:00 1 DRP] albuterol sulfate 90 mcg/actuation aerosol inhaler 2 puff INHALATION Q4H PRN g 08/03/19 [History Last Taken Unknown] ibuprofen 800 mg tablet 800 mg PO TID PRN tab 08/03/19 [History Last Taken Unknown] pantoprazole 40 mg tablet,delayed release 40 mg PO DAILY PRN tab 08/06/19 [History Last Taken Unknown] potassium chloride 20 mEq tablet,extended release(part/cryst) 20 meq PO DAILY PRN tab 08/06/19 [History Last Taken Unknown] coenzyme Q10 100 mg capsule 100 mg PO DAILY #30 cap 12/31/19 [Rx Last Taken Unknown] empagliflozin 5 mg-metformin 1,000 mg tablet 1 tab PO BID tab 12/31/19 [History Last Taken Unknown] rosuvastatin 10 mg tablet 10 mg PO DAILY #30 tab 01/13/21 [Rx Last Taken Unknown] dexamethasone [Decadron] 6 mg PO DAILY #10 tab 03/23/21 [Rx Last Taken Unknown] Allergy/AdvReac Type Severity Reaction Status Date / Time latex Allergy Unknown not clear Verified 03/23/21 04:53 Penicillins Allergy Unknown Verified 03/23/21 04:53 Family History Mother Diabetes Father Diabetes Surgical History History of arthroscopy of both knees History of vasectomy history umbilical hernia repair with mesh Social History Smoking Status: Never smoker alcohol intake: current alcohol intake frequency: a few times a week details: four beers per week substance use type: does not use caffeine: Yes Type: coffee Number of servings: 4 ROS ROS ED Constitutional Constitutional ED: Denies chills or fever(s) Eyes Eyes: Denies change in vision ENT ENT ED: Reports sore throat Cardiovascular Cardiovascular: Reports chest pain Respiratory/Chest Respiratory/Chest: Reports cough and dyspnea Gastrointestinal Gastrointestinal: Denies abdominal pain, diarrhea, nausea or vomiting Genitourinary Genitourinary ED: Denies dysuria Musculoskeletal Musculoskeletal: Denies back pain Integumentary Denies rash Neurologic Neurologic: Denies headache(s) or weakness Allergic/Immunologic Allergic/Immunologic ED: Denies urticaria EXAM Physical Exam Const Vital Signs: 03/23/21 04:47 03/23/21 04:57 03/23/21 05:46 Temperature 98.9 F Temperature Source Oral Pulse Rate 78 80 Respiratory Rate 17 18 Respiratory Pattern Normal Normal Blood Pressure 154/89 H Blood Pressure Mean 110 Pulse Ox 97 Oxygen Delivery Method Room Air 03/23/21 06:01 Temperature Temperature Source Pulse Rate 85 Respiratory Rate 23 H Respiratory Pattern Blood Pressure Blood Pressure Mean Pulse Ox 93 Oxygen Delivery Method Room Air Positive well nourished and well developed General Appearance ED: well developed HEENT Reports normocephalic and head/scalp atraumatic HEENT Narrative: Posterior pharynx exam normal. Eyes PERRL and EOMs intact bilaterally Neck supple Chest Wall inspection of chest normal and palpation of chest normal Resp normal respiratory effort Resp Narrative: Slight expiratory wheezes. Cardio regular rate and regular rhythm GI normal to inspection, nondistended, normoactive bowel sounds Palpation: soft Extremity normal to inspection Neuro oriented x3 and no sensory deficits noted Sensorium / Orientation: alert Motor Exam: strength 5/5 throughout Psych mental status grossly normal Skin no rashes or lesions noted MDM MDM MDM Narrative Medical decision making narrative: Patient was given dose of Solu-Medrol and a DuoNeb treatment along with Tessalon Perles. Lab work, chest x-ray, EKG, Covid swab obtained. Lab Data Attestation: I reviewed the patient's lab results. Labs: Laboratory Results - last 24 hr 03/23/21 03/23/21 05:45 05:45 WBC 11.2 H RBC 5.17 Hgb 15.2 Hct 46.2 MCV 89.4 MCH 29.4 MCHC 32.9 RDW Std Deviation 47.9 H RDW Coeff of Mariel 14.7 H Plt Count 165 MPV 10.8 Immature Gran % (Auto) 0.300 Neut % (Auto) 76.4 H Lymph % (Auto) 12.0 L [place] % (Auto) 9.7 Eos % (Auto) 1.2 Baso % (Auto) 0.4 Absolute Neuts (auto) 8.6 H Absolute Lymphs (auto) 1.35 Nucleated RBC % 0 Sodium 139 Potassium 4.2 Chloride 106 Carbon Dioxide 24.0 Anion Gap 9 BUN 14 Creatinine 0.79 Estim Creat Clear Calc 96.26 Est GFR (MDRD) Af Amer 127 Est GFR (MDRD) Non-Af 105 BUN/Creatinine Ratio 17.8 Glucose 179 H Calcium 8.9 Troponin I High Sens 8 Radiography Chest X-Ray - ED: 1 View, Read by ED Physician, Normal, Heart, Lungs and Mediastinum EKG Initial EKG: Attestation: I personally reviewed and interpreted this EKG as follows: Interpretation: Sinus Rhythm (Sinus at 78. T inversion in the inferior leads, not significantly changed when compared to prior study from 2019.) Treatment and Re-Evaluation Comments:: Repeat evaluation patient resting comfortably. Sats are maintaining in the mid 90s on room air. Test results discussed with him. Patient did test positive for Covid. We will treat him with Decadron at home and refer him for monoclonal antibody treatment. Return instructions are provided. Discharge Plan Triage Chief Complaint: Chest Pain ED Provider: Elsy Meraz Dx/Rx/DC Orders Clinical Impression: COVID-19 Instructions: Coronavirus Disease 2019 (COVID-19): Overview, Coronavirus Disease 2019 (COVID-19): Caring for Yourself or Others Prescriptions: New dexamethasone [Decadron] 6 mg tablet 6 mg PO DAILY Qty: 10 RF: 0 No Action diazepam 10 mg tablet 10 mg PO QHS PRN (Reason: Sleep) RF: 0 losartan 25 mg tablet 25 mg PO DAILY RF: 0 latanoprost 0.005 % drops 1 drp OPHTHALMIC DAILY RF: 0 timolol 0.5 % drops 1 drp OPHTHALMIC BID RF: 0 albuterol sulfate [Ventolin HFA] 90 mcg/actuation HFA aerosol inhaler 2 puff INHALATION Q4H PRN (Reason: Asthma) RF: 0 ibuprofen 800 mg tablet 800 mg PO TID PRN (Reason: Pain) RF: 0 pantoprazole 40 mg tablet,delayed release (DR/EC) 40 mg PO DAILY PRN (Reason: GERD) RF: 0 empagliflozin-metformin 5-1,000 mg tablet 1 tab PO BID RF: 0 coenzyme Q10 [Co Q-10] 100 mg capsule 100 mg PO DAILY Qty: 30 RF: 11 aspirin 81 MG tablet,chewable 81 mg PO DAILY@0800 RF: 0 potassium chloride 20 mEq tablet,ER particles/crystals 20 meq PO DAILY PRN (Reason: LOW K) RF: 0 rosuvastatin 10 mg tablet 10 mg PO DAILY Qty: 30 RF: 11 Other Ambulatory Orders: COVID Outpatient Monoclonal Antibody Referral (Routine) Location: None Selected Ordered By: Dr. Elsy Meraz Primary Care Provider: Figueroa Doshi Referrals: Figueroa Doshi DO [Primary Care Provider] - 10-14 Days if not better Disposition Disposition: Home, Self Care Discharge Date/Time: 03/23/21 07:14
[2021-03-23 07:13] VITALS: BP 124/77; PULSE 72; RESP 16; O2SAT 98
== END 2021-03-23 07:14 | disposition home or self-care (01) ==
PROVIDERS: Emergency Provider Emergency Medicine; PCP Family Medicine
DX: U07.1 COVID-19 (principal); J44.9 Chronic obstructive pulmonary disease, unspecified; E78.00 Pure hypercholesterolemia, unspecified; E11.9 Type 2 diabetes mellitus without complications; I10 Essential (primary) hypertension; K21.9 Gastro-esophageal reflux disease without esophagitis; Z79.82 Long term (current) use of aspirin; Z79.84 Long term (current) use of oral hypoglycemic drugs; Z79.899 Other long term (current) drug therapy
CPT/HCPCS: 71045; 80048; 84484; 85025; 87426; 93005; 94640; 96374; 99283; A4216

== ENCOUNTER 2021-03-27 15:13 | Outpatient (CLI) | payer MEDICARE, SELFPAY ==
[2021-03-27] MEDS: 0.9% Saline Lock 10 ML Syringe IV (15:20)
[2021-03-27 15:24] VITALS: BP 117/77; PULSE 59; RESP 16; TEMP 36.8; O2SAT 95; BMI 23.7
[2021-03-27 16:25] VITALS: BP 106/73; PULSE 62; RESP 16; TEMP 36.8; O2SAT 97
[2021-03-27 17:25] VITALS: BP 118/71; PULSE 61; RESP 16; TEMP 36.9; O2SAT 96
== END 2021-03-27 17:25 | disposition home or self-care (01) ==
LOC: ICUOUT 15:13 → MS2 15:15
PROVIDERS: PCP Family Medicine; Referring Provider Nurse Practitioner Acute Care; Visit Provider Nurse Practitioner Acute Care
DX: Z23 Encounter for immunization (principal); U07.1 COVID-19; E66.9 Obesity, unspecified; E11.9 Type 2 diabetes mellitus without complications
CPT/HCPCS: J7050; M0243; A4216; Q0244

== ENCOUNTER 2021-04-25 15:29 | Emergency (ER) | payer MEDICARE, SELFPAY ==
[2021-04-25 15:30] VITALS: BP 133/86; PULSE 73; RESP 20; TEMP 35.6; O2SAT 100; BMI 31.8
--- NOTE | 2021-04-25 15:47 | ED.RN ---
Pt. presents with right side rib pain. Pt. states they it feels like muscle pain, and occurred from coughing so hard. Pt. denies any chest pain.
--- NOTE | 2021-04-25 16:03 | RAD_ITS ---
STUDY: X-RAY CHEST REASON FOR EXAM: Male, 65 years old. chest pain TECHNIQUE: AP COMPARISON: 03/23/2021 FINDINGS: Focal infiltrate in the right lung base has developed since the prior study. There is no demonstrated pleural abnormality. Normal size heart. Normal mediastinum and angie. Normal visualized pulmonary arteries. There is atherosclerotic tortuosity of the aortic arch and descending thoracic aorta. No acute bony process. There is no demonstrated abnormality of the visualized soft tissue structures of the upper abdomen. RAD/Chest 1 View (Portable) IMPRESSION: Developing right lower lobe infiltrate. Electronically Signed: Silverio Higuera MD ([place]) at 16:27 EDT , Service support ,
--- NOTE | 2021-04-25 16:04 | EKG12_ITS ---
Test Reason : Blood Pressure : / mmHG Vent. Rate : 075 BPM Atrial Rate : 075 BPM P-R Int : 154 ms QRS Dur : 092 ms QT Int : 380 ms P-R-T Axes : 041 016 -14 degrees QTc Int : 424 ms Normal sinus rhythm Normal ECG Confirmed by WALLY LAYNE, MAC ([id number]), social media editor AARON JOHNS ([id number]) on 04/28/2021 9:36:35 AM Referred By: AMANDA Confirmed By:MAC LO MD
--- NOTE | 2021-04-25 16:05 | EDS_ITS ---
HPI History of Present Illness Chief Complaint: Chest Pain Informant: patient Narrative Narrative: 65-year-old male presents to the emergency department with right- sided chest pain. He tells me that last week he took a course of prednisone and azithromycin as he felt like he may have walking pneumonia and he had a strong cough with sputum production. He had several episodes of hemoptysis with the phlegm and coughing fits. His chest was sore but by mid week he was feeling much better. Today he notes significant pain over the lower anterior chest. It is worse with deep breathing and palpation. [facility] Medical History Abnormal stress echo Allergic rhinitis Anxiety Asthma Chest pain Degenerative disc disease Essential hypertension GERD (gastroesophageal reflux disease) Glaucoma Hypercholesterolemia Left inguinal hernia Type 2 diabetes mellitus Home Medications aspirin 81 mg PO DAILY@0800 07/12/15 [History Last Taken Unknown] diazepam 10 mg tablet 10 mg PO QHS PRN 10/23/18 [History Last Taken Unknown] latanoprost 0.005 % eye drops 1 drp OPHTHALMIC DAILY 10/23/18 [History Last Taken 11/09/18 05:00 1 DRP] losartan 25 mg tablet 25 mg PO DAILY 10/23/18 [History Last Taken Unknown] timolol 0.5 % eye drops 1 drp OPHTHALMIC BID 10/23/18 [History Last Taken 11/09/18 05:00 1 DRP] albuterol sulfate 90 mcg/actuation aerosol inhaler 2 puff INHALATION Q4H PRN g 08/03/19 [History Last Taken Unknown] ibuprofen 800 mg tablet 800 mg PO TID PRN tab 08/03/19 [History Last Taken Unknown] pantoprazole 40 mg tablet,delayed release 40 mg PO DAILY PRN tab 08/06/19 [History Last Taken Unknown] potassium chloride 20 mEq tablet,extended release(part/cryst) 20 meq PO DAILY [place] N tab 08/06/19 [History Last Taken Unknown] coenzyme Q10 100 mg capsule 100 mg PO DAILY #30 cap 12/31/19 [Rx Last Taken Unknown] empagliflozin 5 mg-metformin 1,000 mg tablet 1 tab PO BID tab 12/31/19 [History Last Taken Unknown] rosuvastatin 10 mg tablet 10 mg PO DAILY #30 tab 01/13/21 [Rx Last Taken Unknown] dexamethasone [Decadron] 6 mg PO DAILY #10 tab 03/23/21 [Rx Last Taken Unknown] ketorolac 10 mg PO TID PRN 5 Days #15 tab 04/25/21 [Rx Last Taken Unknown] levofloxacin 750 mg PO DAILY #7 tab 04/25/21 [Rx Last Taken Unknown] Allergy/AdvReac Type Severity Reaction Status Date / Time latex Allergy Unknown not clear Verified 03/23/21 04:53 Penicillins Allergy Unknown Verified 03/23/21 04:53 Family History Mother Diabetes Father Diabetes Surgical History History of arthroscopy of both knees History of vasectomy history umbilical hernia repair with mesh Social History Smoking Status: Never smoker alcohol intake: current alcohol intake frequency: a few times a week details: four beers per week substance use type: does not use caffeine: Yes Type: coffee Number of servings: 4 ROS ROS ED Constitutional Constitutional ED: Denies chills or weight loss Eyes Eyes: Denies change in vision or diplopia ENT ENT ED: Denies ear pain, rhinorrhea or sore throat Cardiovascular Cardiovascular: Reports as per HPI and chest pain; Denies orthopnea, palpitations or racing heartbeat Respiratory/Chest Respiratory/Chest: Reports cough and sputum; Denies dyspnea or orthopnea Gastrointestinal Gastrointestinal: Denies abdominal pain, diarrhea, nausea or vomiting Genitourinary Genitourinary ED: Denies dysuria, hematuria or urinary frequency Musculoskeletal Musculoskeletal: Denies arthralgias or myalgias Integumentary Denies abscess or rash Neurologic Neurologic: Denies headache(s) or weakness Psychiatric Psychiatric: Denies anxiety, depression, suicidal ideation or suicidal thoughts Endocrine Endocrinology: Denies polydipsia, polyphagia or polyuria Allergic/Immunologic Allergic/Immunologic ED: Denies mouth swelling, tongue swelling or urticaria EXAM Physical Exam Const Vital Signs: 04/25/21 15:30 04/25/21 15:46 04/25/21 19:40 Temperature 96.0 F L Temperature Source Temporal Pulse Rate 73 66 Respiratory Rate 20 H 16 Respiratory Effort Normal Non-Labored Blood Pressure 133/86 H 119/78 Blood Pressure Mean 101 91 Pulse Ox 100 Oxygen Delivery Method Room Air 04/25/21 20:27 Temperature Temperature Source Pulse Rate 68 Respiratory Rate 16 Respiratory Effort Blood Pressure 126/73 H Blood Pressure Mean 90 Pulse Ox 94 Oxygen Delivery Method Room Air Positive well nourished and well developed General Appearance ED: well developed HEENT Reports normocephalic, head/scalp atraumatic and moist mucous membranes Eyes PERRL and EOMs intact bilaterally Neck no lymphadenopathy, supple and no JVD Chest Wall Chest Narrative: Tender to palpation anterior lower chest wall on the right Resp normal respiratory effort and clear to auscultation bilaterally Cardio regular rate, regular rhythm and no murmurs GI normal to inspection, nondistended, normoactive bowel sounds and non-tender Palpation: soft Back/Spine no CVA tenderness and normal ROM Extremity normal to inspection General Extremety ED: Negative for edema General Extremity: Negative for edema Neuro oriented x3 and CN's II-XII intact bilaterally Sensorium / Orientation: alert Motor Exam: strength 5/5 throughout Psych mental status grossly normal Mood & Affect: Negative for depressed or tearful Skin no rashes or lesions noted and no wounds MDM MDM MDM Narrative Medical decision making narrative: Patient's white blood cell count is 18.4. D- dimer 1.1. Troponin of 6. BMP normal. Mitral rotation of the chest x-ray is right lower lobe infiltrate. I do concern for pulmonary embolism in the elevated D-dimer CTA of the chest was ordered. This demonstrated a cavitary pneumonia with a pleural effusion. Case was discussed with the hospitalist on duty as well as manufacturing applications engineer Dr. Goodwin. Plan will be to discharge the patient home with Levaquin. He will follow up with pulmonology return if worsening or concerns. The patient got good pain relief with Toradol and does not want any narcotics I will write him some Toradol to have at home as well. Lab Data Attestation: I reviewed the patient's lab results. Labs: Laboratory Results - last 24 hr 04/25/21 04/25/21 04/25/21 15:40 15:40 15:40 WBC 18.4 H RBC 4.76 Hgb 13.6 Hct 42.8 MCV 89.9 MCH 28.6 MCHC 31.8 L RDW Std Deviation 48.7 H RDW Coeff of Mariel 14.8 H Plt Count 347 MPV 10.3 Immature Gran % (Auto) 1.500 H Neut % (Auto) 82.6 H Lymph % (Auto) 8.5 L Coke % (Auto) 6.2 Eos % (Auto) 0.8 Baso % (Auto) 0.4 Absolute Neuts (auto) 15.3 H Absolute Lymphs (auto) 1.56 Nucleated RBC % 0 D-Dimer Quant (PE/DVT) 1.10 H* Sodium 135 L Potassium 4.1 Chloride 100 Carbon Dioxide 27.0 Anion Gap 8 BUN 12 Creatinine 0.85 Estim Creat Clear Calc 64.09 Est GFR (MDRD) Af Amer 116 Est GFR (MDRD) Non-Af 96 BUN/Creatinine Ratio 14.1 Glucose 225 H Calcium 9.1 Troponin I High Sens 6 Radiography Diagnostic Testing: Clinical Impression(s) from Imaging Studies Chest X-Ray 04/25/21 16:03 IMPRESSION: Developing right lower lobe infiltrate. Electronically Signed: Silverio Higuera MD ([place]) at 16:27 EDT , Service support , Chest CTA 04/25/21 16:49 IMPRESSION: 1. Right lower lobe consolidation with focus of gas consistent with cavitary pneumonia. 2. Hepatic cyst. Electronically Signed: Laura Perez MD at 19:12 EDT Tel , Service support , EKG Initial EKG: Attestation: I personally reviewed and interpreted this EKG as follows: Comments: Normal sinus rhythm with a ventricular rate of 75 bpm no concerning features of ACS or ectopy noted Discharge Plan Triage Chief Complaint: Chest Pain ED Provider: Brian Ortega Dx/Rx/DC Orders Clinical Impression: Right-sided chest pain, Cavitary pneumonia, Parapneumonic effusion Instructions: ED Pneumonia (Adult) Prescriptions: New levofloxacin 750 mg tablet 750 mg PO DAILY Qty: 7 RF: 0 ketorolac 10 mg tablet 10 mg PO TID PRN (Reason: pain) 5 Days Qty: 15 RF: 0 No Action diazepam 10 mg tablet 10 mg PO QHS PRN (Reason: Sleep) RF: 0 losartan 25 mg tablet 25 mg PO DAILY RF: 0 latanoprost 0.005 % drops 1 drp OPHTHALMIC DAILY RF: 0 timolol 0.5 % drops 1 drp OPHTHALMIC BID RF: 0 albuterol sulfate [Ventolin HFA] 90 mcg/actuation HFA aerosol inhaler 2 puff INHALATION Q4H PRN (Reason: Asthma) RF: 0 ibuprofen 800 mg tablet 800 mg PO TID PRN (Reason: Pain) RF: 0 pantoprazole 40 mg tablet,delayed release (DR/EC) 40 mg PO DAILY PRN (Reason: GERD) RF: 0 empagliflozin-metformin 5-1,000 mg tablet 1 tab PO BID RF: 0 coenzyme Q10 [Co Q-10] 100 mg capsule 100 mg PO DAILY Qty: 30 RF: 11 aspirin 81 MG tablet,chewable 81 mg PO DAILY@0800 RF: 0 potassium chloride 20 mEq tablet,ER particles/crystals 20 meq PO DAILY PRN (Reason: LOW K) RF: 0 dexamethasone [Decadron] 6 mg tablet 6 mg PO DAILY Qty: 10 RF: 0 rosuvastatin 10 mg tablet 10 mg PO DAILY Qty: 30 RF: 11 Primary Care Provider: Figueroa Doshi Referrals: Brock Goodwin DO [STAFF PHYSICIAN] - Keep [place] appointment (Please call the office on Tuesday to arrange a follow-up appointment for 1 month. You may call them back to request earlier appointment if clinically needed) Figueroa Doshi DO [Primary Care Provider] - Disposition Disposition: Home, Self Care
[2021-04-25] MEDS: Ketorolac 30 MG/ML Syringe IV (16:09)
[2021-04-25 16:24] LABS: Absolute Lymphocyte Count 1.56 X10^3/uL (0.83-4.51); Absolute Neutrophil Count 15.3 X10^3/uL (2.0-7.7); Basophil# 0.07 X10^3/uL; Basophil% 0.4 % (0-1); Eosinophil# 0.14 X10^3/uL; Eosinophils% 0.8 % (0-5); Hematocrit 42.8 % (40-54); Hemoglobin 13.6 g/dL (13.0-16.5); Lymphocyte # 1.56 X10^3/ul (0.83-4.51); Lymphocyte % 8.5 % (19-41); Mean Corp Hgb Conc 31.8 g/dL (32-36); Mean Corpuscular Hgb 28.6 pg (27.0-32.0); Mean Corpuscular Volume 89.9 fL (80-94); Mean Platelet Vol. 10.3 fl (6.2-12.0); Monocyte# 1.14 X10^3/uL; Monocyte% 6.2 % (0-10); NRBC Flagged by Analyzer 0 % (0-5); Neutrophil # 15.25 X10^3/uL (2.7-7.7); Neutrophil % 82.6 % (47-70); Platelet Count 347 K/mm3 (150-450); RBC Distribution Width CV 14.8 % (11.6-14.6); RBC Distribution Width SD 48.7 fl (35.1-43.9); Red Blood Count 4.76 M/mm3 (4.6-6.2); White Blood Count 18.4 K/mm3 (4.4-11.0)
[2021-04-25 16:32] LABS: Anion Gap 8 (5-15); BUN 12 mg/dL (7-18); BUN/Creat Ratio 14.1 RATIO (10-20); Calcium,Total 9.1 mg/dL (8.5-10.1); Chloride 100 mmol/L (98-107); Creatinine, Serum 0.85 mg/dL (0.70-1.30); EST Glomerular Filtration Rate 96 mL/min (>60); Est Glom Filt Rate - Afr Amer 116 mL/min (>60); Estimated Creatinine Clearance 64.09 ml/min; Glucose 225 mg/dL (74-106); Potassium 4.1 mmol/L (3.5-5.1); Sodium Level 135 mmol/L (136-145); Troponin-I HS 6 pg/mL (3.0-78.0)
--- NOTE | 2021-04-25 16:49 | CT_ITS ---
EXAM: CT ANGIOGRAPHY CHEST WITHOUT AND WITH INTRAVENOUS CONTRAST CLINICAL INDICATION: pulmonary embolism TECHNIQUE: Helically acquired angiography images were obtained of the chest without and with intravenous contrast. This CT exam was performed using one or more of the following dose reduction techniques: automated exposure control, adjustment of the mA and/or kV according to patient size, and/or use of iterative reconstruction technique. This report was created using [employer] report generation technology. MIP reconstructed images were created and reviewed. CONTRAST: IV 100mL Isovue-370 COMPARISON: None. FINDINGS: PULMONARY ARTERIES: Unremarkable. Normal in caliber. No evidence of pulmonary embolism. AORTA: Unremarkable. Normal in caliber. No evidence of dissection. GREAT VESSELS OF AORTIC ARCH: Unremarkable. Normal in caliber. No evidence of dissection. LUNGS AND PLEURAL SPACES: Right lower lobe consolidation with focus of gas consistent with cavitary pneumonia. Small right pleural effusion. No mass. HEART: Unremarkable. Heart size is normal. No pericardial effusion. No signs of right heart strain, ratio of right ventricle to left ventricle measures less than 1. MEDIASTINUM: Unremarkable. No mediastinal or hilar adenopathy. Esophagus is unremarkable. No hiatal hernia. THYROID: Unremarkable. No thyroid lesions. BONES/JOINTS: Unremarkable. No suspicious lytic or blastic abnormality. LIVER: 1.7 cm lateral segment hepatic cyst. CT/CTA Chest W/WO Contrast IMPRESSION: 1. Right lower lobe consolidation with focus of gas consistent with cavitary pneumonia. 2. Hepatic cyst. Electronically Signed: Laura Perez MD at 19:12 EDT Tel , Service support ,
[2021-04-25 19:40] VITALS: BP 119/78; PULSE 66; RESP 16
[2021-04-25 20:27] VITALS: BP 126/73; PULSE 68; RESP 16; O2SAT 94
== END 2021-04-25 21:02 | disposition home or self-care (01) ==
PROVIDERS: Emergency Provider Emergency Medicine; PCP Family Medicine
DX: J18.9 Pneumonia, unspecified organism (principal); R07.89 Other chest pain
CPT/HCPCS: 71045; 71275; 80048; 84484; 85025; 85379; 93005; 96374; 99284; Q9967; A4216

== ENCOUNTER → 2021-05-11 13:50 | Outpatient (CLI) | payer MEDICARE, SELFPAY ==
--- NOTE | 2021-05-11 13:54 | CT_ITS ---
STUDY: CT CHEST WITH CONTRAST REASON FOR EXAM: Male, 65 years old. PNEUMONIA RADIATION DOSAGE (If Supplied By Facility): CTDIvol = ( 9.23 ) mGy, DLP = ( 331.42 ) mGycm TECHNIQUE: Transaxial imaging was performed following intravenous administration of IV 100mL Isovue-300. Multiplanar coronal and sagittal images were reformatted. Individualized dose optimization techniques were used for this CT. COMPARISON: Comparison is made with prior examination dated 04/25/2021. FINDINGS: Residual infiltrate in the lateral aspect of the right lower lobe persists although there has been improvement. No cavitation is seen at this time. Small residual right pleural effusion. Persistent mild increased markings in the posterior aspect of the right upper lobe. There are calcifications of the coronary arteries. Normal mediastinum. Normal hilar regions. Normal enhanced pulmonary arteries. Normal aorta arch and descending thoracic aorta. There are multi-level degenerative changes of the thoracic spine. Stable cyst in the left lobe of the liver. CT/Chest WITH Contrast IMPRESSION: Persistent right lower lobe infiltrate although this has improved as compared to prior study. Electronically Signed: Chris Guardado MD at 15:52 EDT , Service support ,
== END ==
PROVIDERS: PCP Family Medicine; Referring Provider Family Medicine; Visit Provider Family Medicine
DX: J85.0 Gangrene and necrosis of lung (principal); J18.9 Pneumonia, unspecified organism
CPT/HCPCS: 71260; Q9967

== ENCOUNTER 2021-07-21 07:22 | Outpatient (CLI) | payer MEDICARE, SELFPAY ==
--- NOTE | 2021-07-21 07:28 | RAD_ITS ---
STUDY: X-RAY CHEST REASON FOR EXAM: Male, 65 years old. Follow Up Pneumonia TECHNIQUE: PA and lateral views of the chest. COMPARISON: 04/25/2020 FINDINGS: The lungs are clear and expanded. There is no demonstrated pleural abnormality. Normal size heart. Normal mediastinum and angie. Normal visualized pulmonary arteries. Normal visualized aortic arch and descending thoracic aorta. Normal visualized thoracic spine. Normal visualized ribs, clavicles, and shoulders. There is no demonstrated abnormality of the visualized soft tissue structures of the upper abdomen. RAD/Chest PA and Lateral IMPRESSION: Normal x-ray examination of the chest. Electronically Signed: Sohail Verdin MD at 7:47 EST Tel , Service support ,
== END 2021-07-21 23:59 | disposition short-term general hospital (02) ==
LOC: RAD 07:24
PROVIDERS: PCP Family Medicine; Referring Provider Internal Medicine Critical Care Medicine; Visit Provider Internal Medicine Critical Care Medicine
DX: J18.9 Pneumonia, unspecified organism (principal)
CPT/HCPCS: 71046

== ENCOUNTER 2021-08-05 06:27 | Outpatient (CLI) | payer MEDICARE, SELFPAY ==
--- NOTE | 2021-08-05 17:52 | STRESSREP ---
Stress Test Report Exercise myocardial perfusion stress test. 66-year-old male with a history of coronary artery disease. Stress protocol: Resting KG demonstrates sinus bradycardia with a rate of 48 bpm normal intervals are noted resting blood pressure is 138/82 mmHg. The patient exercised according to regular Matteo protocol for total duration of 7 minutes completing 1 minute into stage III of the Matteo protocol. The maximum heart rate attained was 144 bpm which was 93% of maximum predicted heart rate the maximum workload was 10.1 metabolic equivalents. Patient maintained sinus rhythm throughout the recording. At rest there were no ST or T wave changes noted to suggest ischemia and at peak exercise upsloping ST changes were noted with did not meet the criteria for ischemia. No clinical angina was noted. The peak blood pressure was 182/92 mmHg. Myocardial perfusion protocol. 11.9 mCi of technetium 99m sestamibi was injected at rest. The patient exercised according to regular Matteo protocol for 7 minutes and at peak exercise 34.2 mCi of technetium 99m sestamibi was injected stress images were obtained stress and rest images were reconstructed and compared in the short axis vertical long and horizontal long axis. Gated images were also obtained. Perfusion SPECT analysis: Review of the stress images demonstrate normal uptake of tracer noted in all areas of the myocardium. The resting images similarly demonstrate normal uptake of tracer noted in all areas of the myocardium. No obvious areas of reversibility are noted suggest ischemia and no previous infarct is noted. Gated SPECT analysis: The gated ejection fraction is noted to be 58%. Conclusion: Normal exercise myocardial perfusion stress test with no evidence of ischemia at a high workload. Preserved ejection fraction
== END 2021-08-05 23:59 | disposition short-term general hospital (02) ==
PROVIDERS: PCP Family Medicine; Referring Provider Internal Medicine Cardiovascular Disease; Visit Provider Internal Medicine Cardiovascular Disease
DX: R07.9 Chest pain, unspecified (principal); R94.39 Abnormal result of other cardiovascular function study
CPT/HCPCS: 78452; 93017; A9500; A4216

== ENCOUNTER → 2022-08-31 | Outpatient (CLI) | payer MEDICARE, SELFPAY ==
[2022-08-31 12:39] LABS: AST(SGOT) 11 U/L (15-37); Alanine Aminotransfer ALT/SGPT 19 U/L (16-61); Albumin, Serum 3.7 g/dL (3.2-5.0); Alkaline Phosphatase 96 U/L (45-117); Anion Gap 7 (5-15); BUN 15 mg/dL (7-18); BUN/Creat Ratio 16.5 RATIO (10-20); Calcium,Total 9.3 mg/dL (8.5-10.1); Chloride 110 mmol/L (98-107); Cholesterol 180 mg/dL (200); Creatinine, Serum 0.91 mg/dL (0.70-1.30); EST Glomerular Filtration Rate 88 mL/min (>60); Est Glom Filt Rate - Afr Amer 107 mL/min (>60); Globulin 3.7 g/dL (2.2-4.2); Glucose 187 mg/dL (74-106); High Density Lipoprotein 46 mg/dL; Potassium 4.5 mmol/L (3.5-5.1); Protein, Total 7.4 g/dL (6.4-8.2); Sodium Level 144 mmol/L (136-145); Triglycerides 82 mg/dL; Very Low Density Lipoprotein 16 mg/dL (5-40)
[2022-08-31 12:41] LABS: Hemoglobin A1c 7.9 % (3.8-5.6); Microalbumin,Random Urine 7.6 mg/L (NO RANGE EST.)
== END | disposition home or self-care (01) ==
LOC: BFHLAB 09:15
PROVIDERS: PCP Family Medicine; Visit Provider Family Medicine
DX: E11.9 Type 2 diabetes mellitus without complications (principal); I10 Essential (primary) hypertension
CPT/HCPCS: 36415; 80053; 80061; 82043; 82570; 83036

== ENCOUNTER → 2023-09-01 | Outpatient (CLI) | payer MEDICARE, SELFPAY ==
[2023-09-01 12:10] LABS: Absolute Lymphocyte Count 2.17 X10^3/uL (0.83-4.51); Absolute Neutrophil Count 4.1 X10^3/uL (2.0-7.7); Basophil# 0.09 X10^3/uL; Basophil% 1.2 % (0-1); Eosinophil# 0.53 X10^3/uL; Eosinophils% 7.1 % (0-5); Hematocrit 48.7 % (40-54); Hemoglobin 15.9 g/dL (13.0-16.5); Lymphocyte # 2.17 X10^3/ul (0.83-4.51); Lymphocyte % 28.9 % (19-41); Mean Corp Hgb Conc 32.6 g/dL (32-36); Mean Corpuscular Hgb 30.1 pg (27.0-32.0); Mean Corpuscular Volume 92.2 fL (80-94); Mean Platelet Vol. 11.5 fl (6.2-12.0); Monocyte# 0.57 X10^3/uL; Monocyte% 7.6 % (0-10); NRBC Flagged by Analyzer 0 % (0-5); Neutrophil # 4.06 X10^3/uL (2.7-7.7); Neutrophil % 54.1 % (47-70); Platelet Count 227 K/mm3 (150-450); RBC Distribution Width CV 14.4 % (11.6-14.6); RBC Distribution Width SD 48.6 fl (35.1-43.9); Red Blood Count 5.28 M/mm3 (4.6-6.2); White Blood Count 7.5 K/mm3 (4.4-11.0)
[2023-09-01 13:02] LABS: AST(SGOT) 14 U/L (15-37); Alanine Aminotransfer ALT/SGPT 21 U/L (16-61); Albumin, Serum 3.9 g/dL (3.2-5.0); Alkaline Phosphatase 99 U/L (45-117); Anion Gap 5 (5-15); BUN 28 mg/dL (7-18); BUN/Creat Ratio 30.7 RATIO (10-20); Calcium,Total 9.7 mg/dL (8.5-10.1); Chloride 109 mmol/L (98-107); Cholesterol 186 mg/dL (200); Creatinine, Serum 0.91 mg/dL (0.70-1.30); EST Glomerular Filtration Rate 88 mL/min (>60); Est Glom Filt Rate - Afr Amer 106 mL/min (>60); Globulin 3.8 g/dL (2.2-4.2); Glucose 142 mg/dL (74-106); High Density Lipoprotein 47 mg/dL; Potassium 4.3 mmol/L (3.5-5.1); Protein, Total 7.7 g/dL (6.4-8.2); Sodium Level 140 mmol/L (136-145); Triglycerides 153 mg/dL; Very Low Density Lipoprotein 31 mg/dL (5-40)
[2023-09-01 13:56] LABS: Microalbumin,Random Urine 7.8 mg/L (NO RANGE EST.); Microalbumin:Creatinine Ratio 9.9 mg/g CRE (<30 mg/g CRE)
[2023-09-02 12:41] LABS: PSA,Total - Annual Screen 4.41 ng/mL (0.00-4.00)
== END | disposition home or self-care (01) ==
LOC: MTLAB 10:08
PROVIDERS: PCP Family Medicine; Referring Provider Family Medicine; Visit Provider Family Medicine
DX: E11.65 Type 2 diabetes mellitus with hyperglycemia (principal); I10 Essential (primary) hypertension; Z12.5 Encounter for screening for malignant neoplasm of prostate
CPT/HCPCS: 36415; 80053; 80061; 82043; 82570; 83036; 84153; 85025; G0103

== ENCOUNTER → 2024-03-08 | Outpatient (CLI) | payer MEDICARE, SELFPAY ==
[2024-03-10 08:11] LABS: PSA, Free 0.35 ng/mL
== END | disposition home or self-care (01) ==
PROVIDERS: PCP Family Medicine; Referring Provider Family Medicine; Visit Provider Family Medicine
DX: R97.20 Elevated prostate specific antigen [PSA] (principal)
CPT/HCPCS: 36415; 84153; 84154

== ENCOUNTER → 2024-09-04 | Outpatient (CLI) | payer MEDICARE, SELFPAY ==
[2024-09-04 12:46] LABS: Absolute Lymphocyte Count 1.91 X10^3/uL (0.83-4.51); Absolute Neutrophil Count 5.7 X10^3/uL (2.0-7.7); Basophil# 0.08 X10^3/uL; Basophil% 0.9 % (0-1); Eosinophil# 0.37 X10^3/uL; Eosinophils% 4.3 % (0-5); Hemoglobin 14.6 g/dL (13.0-16.5); Lymphocyte # 1.91 X10^3/ul (0.83-4.51); Mean Corp Hgb Conc 31.7 g/dL (32-36); Mean Corpuscular Hgb 28.7 pg (27.0-32.0); Mean Corpuscular Volume 90.4 fL (80-94); Mean Platelet Vol. 11.7 fl (6.2-12.0); Monocyte% 6.9 % (0-10); NRBC Flagged by Analyzer 0 % (0-5); Neutrophil # 5.71 X10^3/uL (2.7-7.7); Neutrophil % 65.7 % (47-70); Platelet Count 216 K/mm3 (150-450); RBC Distribution Width CV 14.5 % (11.6-14.6); RBC Distribution Width SD 48.1 fl (35.1-43.9); Red Blood Count 5.09 M/mm3 (4.6-6.2); White Blood Count 8.7 K/mm3 (4.4-11.0)
[2024-09-04 12:56] LABS: Color, Urine Yellow (Yellow); Glucose, Dipstick 1000 mg/dl (Normal); Ketone-Dipstick 15 mg/dl (Negative); Leukocyte Esterase-Dipstick Negative /ul (Negative); Nitrite-Dipstick Negative (Negative); Occult Blood-Urine Negative /ul (Negative); Protein-Dipstick Negative (Negative); Specific Gravity, Urine 1.015 (1.002-1.030); Urine Bilirubin Dipstick Negative (Negative); Urine Clarity Clear (Clear); Urine Urobilinogen Normal (Normal)
[2024-09-04 13:36] LABS: Microalbumin,Random Urine 5.6 mg/L (NO RANGE EST.); Microalbumin:Creatinine Ratio 7.5 mg/g CRE (<30 mg/g CRE)
[2024-09-04 14:22] LABS: AST(SGOT) 15 U/L (15-37); Alanine Aminotransfer ALT/SGPT 20 U/L (16-61); Albumin, Serum 3.7 g/dL (3.2-5.0); Alkaline Phosphatase 108 U/L (45-117); Anion Gap 8 (5-15); BUN 18 mg/dL (7-18); BUN/Creat Ratio 22.2 RATIO (10-20); Calcium,Total 9.2 mg/dL (8.5-10.1); Chloride 109 mmol/L (98-107); Cholesterol 168 mg/dL (200); Creatinine, Serum 0.81 mg/dL (0.70-1.30); EST Glomerular Filtration Rate 100 mL/min (>60); Est Glom Filt Rate - Afr Amer 122 mL/min (>60); Globulin 3.7 g/dL (2.2-4.2); Glucose 154 mg/dL (74-106); High Density Lipoprotein 49 mg/dL; Potassium 4.1 mmol/L (3.5-5.1); Protein, Total 7.4 g/dL (6.4-8.2); Sodium Level 141 mmol/L (136-145); Triglycerides 107 mg/dL; Very Low Density Lipoprotein 21 mg/dL (5-40)
[2024-09-04 14:34] LABS: Hemoglobin A1c 7.7 % (3.8-5.6)
== END | disposition home or self-care (01) ==
LOC: BFHLAB 08:59
PROVIDERS: PCP Family Medicine; Visit Provider Family Medicine
DX: E11.9 Type 2 diabetes mellitus without complications (principal); E78.00 Pure hypercholesterolemia, unspecified; I10 Essential (primary) hypertension
CPT/HCPCS: 36415; 80053; 80061; 81002; 82043; 82570; 83036; 85025